=== PATIENT | male | born 1950 | race Hispanic/Latino ===

== ENCOUNTER 2017-12-17 11:47 | Inpatient (IN) | payer MEDICARE ==
[~2017-12-17] VITALS: Ht 167.6 cm; Wt 76.7 kg
--- OUTSIDE RECORDS SUMMARY | 2017-12-17 11:49 | XMS REPORT | Clinical Summary ---
Author Author [facility] Address Unknown Phone Unavailable Care Team Providers Care Collar Turner Operator Name Role Phone PCP Unavailable Allergies Active Allergy Reactions Severity Noted Date Comments Adhesive Hives High 08/10/2012 Plastic tape Current Medications Prescription Sig. Disp. Refills Start End Date Status Date niacin (NIASPAN) 1000 MG Take 1,000 mg by mouth Active CR tablet nightly. predniSONE (DELTASONE) 5 Take 5 mg by mouth daily. Active MG tablet insulin glargine (LANTUS) Inject 45 Units Active 100 unit/mL injection subcutaneously nightly Dose confirmed and verified with patient's daughter.. insulin lispro (HUMALOG) Inject 5 Units Active 100 unit/mL subcutaneously 3 (three) injectionIndications: times daily before meals Diabetes Mellitus HOLD FOR GLUCOSE <200 - Dose confirmed and verified with patient's daughter.. omeprazole (PRILOSEC) 40 Take 40 mg by mouth Active MG capsule daily. levothyroxine (SYNTHROID, Take 1 tablet (25 mcg 90 tablet 1 04/17/20 Active LEVOTHROID) 25 MCG tablet total) by mouth daily. 13 NIFEdipine (PROCARDIA-XL) Take 1 tablet (90 mg 30 tablet 6 05/15/20 Active 90 MG (OSM) 24 hr tablet total) by mouth daily. 13 mycophenolate (MYFORTIC) Take 3 tablets (540 mg 180 tablet 6 09/11/19 Active 180 MG EC tablet total) by mouth 2 (two) 14 times daily. docusate sodium (COLACE) Take 1 capsule (100 mg 10 capsule 0 09/11/19 Active 100 MG capsule total) by mouth 2 (two) 14 times daily. carvedilol (COREG) 25 MG Take 25 mg by mouth 2 Active tablet (two) times daily with breakfast and dinner. cycloSPORINE modified Take 100 mg by mouth Active (NEORAL) 100 MG capsule every evening. sodium bicarbonate 650 MG Take 2 tablets (1,300 mg 120 tablet 0 08/19/19 tablet total) by mouth 2 (two) 17 18 times daily. levoFLOXacin (LEVAQUIN) Take 1 tablet (500 mg 7 tablet 0 07/26/19 500 MG tablet total) by mouth daily for 18 18 7 days. benzonatate (TESSALON) Take 1 capsule (100 mg 21 capsule 0 07/26/19 08/02/19 100 MG capsule total) by mouth every 8 18 18 (eight) hours for 7 days. Active Problems Problem Noted Date Bacterial pneumonia, unspecified 08/16/2016 SIRS (systemic inflammatory response syndrome) ([facility]) 10/29/2015 Fever, unspecified fever cause 08/25/2015 Left lower lobe pneumonia ([facility]) 04/30/2015 Fever 03/25/2014 S/P kidney transplant 12/17/2012 DM (diabetes mellitus) ([facility]) Gastroparesis Retinopathy CAD (coronary artery disease) Hyperlipidemia PVD (peripheral vascular disease) ([facility]) GERD (gastroesophageal reflux disease) Encounters Date Type Specialty Care Team Description 07/26/2017 Emergency Emergency Medicine Griselda Calvillo MD S/P kidney transplant (Primary Dx);Wheezing-associated respiratory infection;Immunosuppressi on ([facility]);Fever, unspecified fever cause;Influenza-like illness;Pneumonitis after 12/16/2016 Family History Medical History Relation Name Comments Diabetes Mother Diabetes Son Relation Name Status Comments Mother Son Social History Tobacco Use Types Packs/Day Years Used Date Former Smoker 0.25 20 Quit: 07/23/1994 Smokeless Tobacco: Never Used Alcohol Use Drinks/Week oz/Week Comments No Sex Assigned at Date Recorded Not on file Last Filed Vital Signs Vital Sign Reading Time Taken Blood Pressure 182/80 07/26/2017 5:32 PM INSURANCE REPRESENTATIVE Pulse 84 07/26/2017 5:32 PM INSURANCE REPRESENTATIVE Temperature 36.6 C (97.9 F) 07/26/2017 4:03 PM INSURANCE REPRESENTATIVE Respiratory Rate 18 07/26/2017 5:32 PM INSURANCE REPRESENTATIVE Oxygen Saturation 99% 07/26/2017 5:32 PM INSURANCE REPRESENTATIVE Inhaled Oxygen - - Concentration Weight 76 kg (167 lb 8.8 oz) 07/26/2017 11:15 AM INSURANCE REPRESENTATIVE Height - - Body Mass Index 27.04 07/26/2017 11:15 AM INSURANCE REPRESENTATIVE Plan of Treatment Health Maintenance Due Date Last Done Comments INFLUENZA VACCINE 04/22/2018 Results * CT chest without contrast (07/26/2017 4:25 PM) Specimen Performing Laboratory GE RIS Narrative FINAL REPORT INDICATION: 67-year-old immunocompromised male with cough and fever. COMPARISON: Chest radiograph July 26, [address] exam August 25, 2015 TECHNIQUE: Chest CT exam WITHOUT intravenous contrast. The exam was performed according to our department dose-optimization protocol, which includes automated exposure control, adjustments of mA and kV according to patient size. Iterative reconstructions are also sometimes employed. FINDINGS: There are tree-in-bud opacities, representing pneumonitis, in both lungs and all lobes most significant in the left upper lobe and in the right lower lobe. No consolidation or cavitary pneumonia is demonstrated. Central airways are clear. No pleural effusion. No mediastinal or hilar adenopathy. Esophagus unremarkable. Heart is at the upper limits of normal in size. Coronary artery calcification and thoracic aortic atherosclerotic plaque noted. No pericardial effusion. No suspicious osseous lesion demonstrated. Ossification of the syndesmophytes suggests ankylosing spondylitis. Partial imaging of the upper abdomen demonstrates cholecystectomy surgical clips and renal atrophy. IMPRESSION: Tree-in-bud opacities in both lungs and all lobes, representing pneumonitis. No consolidation and no cavitary pneumonia. Signed: Laura Monterroso MD Report Verified Date/Time:07/26/2017 17:11:09 Reading Location: [address] Body Reading Room Procedure Note Interface, External Ris In - 07/26/2017 5:13 PM INSURANCE REPRESENTATIVE FINAL REPORT INDICATION: 67-year-old immunocompromised male with cough and fever. COMPARISON: Chest radiograph July 26, [address] exam August 25, 2015 TECHNIQUE: Chest CT exam WITHOUT intravenous contrast. The exam was performed according to our department dose-optimization protocol, which includes automated exposure control, adjustments of mA and kV according to patient size. Iterative reconstructions are also sometimes employed. FINDINGS: There are tree-in-bud opacities, representing pneumonitis, in both lungs and all lobes most significant in the left upper lobe and in the right lower lobe. No consolidation or cavitary pneumonia is demonstrated. Central airways are clear. No pleural effusion. No mediastinal or hilar adenopathy. Esophagus unremarkable. Heart is at the upper limits of normal in size. Coronary artery calcification and thoracic aortic atherosclerotic plaque noted. No pericardial effusion. No suspicious osseous lesion demonstrated. Ossification of the syndesmophytes suggests ankylosing spondylitis. Partial imaging of the upper abdomen demonstrates cholecystectomy surgical clips and renal atrophy. IMPRESSION: Tree-in-bud opacities in both lungs and all lobes, representing pneumonitis. No consolidation and no cavitary pneumonia. Signed: Laura Monterroso MD Report Verified Date/Time: 07/26/2017 17:11:09 Reading Location: [facility] C013Y CT Body Reading Room * XR chest 2 views (07/26/2017 1:36 PM) Specimen Performing Laboratory GE RIS Narrative FINAL REPORT TECHNIQUE: Frontal and lateral chest radiographs dated 07/26/2017. CLINICAL HISTORY: Cough, fever COMPARISON STUDY: Chest radiograph dated 08/18/2016 FINDINGS: Small amount of atelectasis is seen in the left lung base. There are ill-defined, micronodular opacities in the left upper lobe and right lower lobe concerning for an infectious/inflammatory process. No pleural effusion or pneumothorax. Cardiomediastinal silhouette is normal in size. No pulmonary edema. Degenerative changes are seen in the spine. IMPRESSION: Ill-defined, micronodular opacities in the left upper lobe and right lower lobe concerning for an infectious/inflammatory process. CT scan of the chest is recommended. Signed: Briseyda Santos MD Report Verified Date/Time:07/26/2017 14:01:06 Reading Location: [facility] Radiology Reading Room Procedure Note Interface, External Ris In - 07/26/2017 2:03 PM INSURANCE REPRESENTATIVE FINAL REPORT TECHNIQUE: Frontal and lateral chest radiographs dated 07/26/2017. CLINICAL HISTORY: Cough, fever COMPARISON STUDY: Chest radiograph dated 08/18/2016 FINDINGS: Small amount of atelectasis is seen in the left lung base. There are ill-defined, micronodular opacities in the left upper lobe and right lower lobe concerning for an infectious/inflammatory process. No pleural effusion or pneumothorax. Cardiomediastinal silhouette is normal in size. No pulmonary edema. Degenerative changes are seen in the spine. IMPRESSION: Ill-defined, micronodular opacities in the left upper lobe and right lower lobe concerning for an infectious/inflammatory process. CT scan of the chest is recommended. Signed: Briseyda Santos MD Report Verified Date/Time: 07/26/2017 14:01:06 Reading Location: [facility] Radiology Reading Room * Influenza A H1N1 PCR (07/26/2017 12:52 PM) Component Value Ref Range Influenza A RNA Not Detected Not Detected, Inconclusive Novel H1N1 RNA Not Detected Not Detected, Inconclusive Specimen Performing Laboratory Nasal - Nasopharyngeal [facility] [address] These assays were performed by real-time RT-PCR (dye range operator cloth-PCR) utilizing fluorogenic hydrolysis probe technology for the detection of human Influenza A viruses and the differential detection of novel H1N1 Influenza virus in respiratory specimens. The test is composed of (1) an RNA extraction from patient specimen, and (2) dye range operator cloth-PCR amplification and detection with human Influenza A and novel [id number] primers and probes. A well-conserved region of the Influenza A matrix gene is targeted in one set of reactions to identify both seasonal Influenza A and novel H1N1 Influenza virus in the specimen.In addition, a specific region of the hemagglutinin gene is targeted to differentiate the novel H1N1 virus from the seasonal human influenza. An internal control is used to confirm PCR amplification.Genetic variation and other factors can affect the accuracy of nucleic acid testing; therefore, the results should be interpreted in light of clinical data. This test was developed and its performance characteristics determined by the [facility] Pathology Department, Section of Molecular Pathology.It has not been cleared or approved by the U.S. Food and Drug Administration (FDA).Since FDA approval is not required for clinical use of the test, validation was done as required by The Clinical Laboratory Amendments of 1988. These assays were performed by real-time RT-PCR (dye range operator cloth-PCR) utilizing fluorogenic hydrolysis probe technology for the detection of human Influenza A viruses and the differential detection of novel H1N1 Influenza virus in respiratory specimens. The test is composed of (1) an RNA extraction from patient specimen, and (2) dye range operator cloth-PCR amplification and detection with human Influenza A and novel [id number]-vjvtozym primers and probes. A well-conserved region of the Influenza A matrix gene is targeted in one set of reactions to identify both seasonal Influenza A and novel H1N1 Influenza virus in the specimen.In addition, a specific region of the hemagglutinin gene is targeted to differentiate the novel H1N1 virus from the seasonal human influenza. An internal control is used to confirm PCR amplification.Genetic variation and other factors can affect the accuracy of nucleic acid testing; therefore, the results should be interpreted in light of clinical data. This test was developed and its performance characteristics determined by the [facility] Pathology Department, Section of Molecular Pathology.It has not been cleared or approved by the U.S. Food and Drug Administration (FDA).Since FDA approval is not required for clinical use of the test, validation was done as required by The Clinical Laboratory Amendments of 1988. * Rapid Influenza A&B Screen (07/26/2017 12:52 PM) Component Value Ref Range Rapid Influenza A Antigen Negative Negative, Inconclusive Rapid influenza B Antigen Negative Negative, Inconclusive Specimen Performing Laboratory Nasal - Nasopharyngeal [facility] [address] [place] [address] * CBC with platelet count + automated diff (07/26/2017 12:43 PM) Component Value Ref Range WBC 7.6 3.5 - 10.5 K/ L RBC 3.78 (L) 4.63 - 6.08 M/ L Hemoglobin 10.9 (L) 13.7 - 17.5 GM/DL Hematocrit 32.7 (L) 40.1 - 51.0 % MCV 86.5 79.0 - 92.2 fL MCH 28.8 25.7 - 32.2 pg MCHC 33.3 32.3 - 36.5 GM/DL RDW 13.1 11.6 - 14.4 % Platelets 315 150 - 450 K/CU MM MPV 10.2 9.4 - 12.4 fL nRBC 0 0 - 0 /100 WBC % Neutros 76 % % Lymphs 11 % % Monos 9 % % Eos 4 % % Baso 1 % # Neutros 5.79 (H) 1.78 - 5.38 K/ L # Lymphs 0.80 (L) 1.32 - 3.57 K/ L # Monos 0.66 0.30 - 0.82 K/ L # Eos 0.27 0.04 - 0.54 K/ L # Baso 0.06 0.01 - 0.08 K/ L Immature 1 0 - 1 % Granulocytes-Relative Specimen Performing Laboratory Blood - Line, Venous [address] [address] * CBC with platelet count + automated diff (07/26/2017 12:43 PM) Specimen Performing Laboratory Blood Narrative The following orders were created for panel order CBC with platelet count + automated diff. Procedure Abnormality Status --------- - ------ CBC with platelet count ...[[id number]]AbnormalFinal result Please view results for these tests on the individual orders. * Basic metabolic panel (Na, K+, Cl, CO2, Glu, Ca, BUN, Cr) (07/26/2017 12:43 PM ) Component Value Ref Range Sodium 133 (L) 136 - 145 meq/L Potassium 3.6 3.5 - 5.1 meq/L Chloride 105 98 - 107 meq/L CO2 18 (L) 22 - 29 meq/L BUN 18 7 - 21 mg/dL Creatinine 1.50 (H) 0.57 - 1.25 mg/dL Glucose 165 (H) 70 - 105 mg/dL Calcium 10.0 8.4 - 10.2 mg/dL EGFR 47Comment: ESTIMATED GFR IS NOT ACCURATE mL/min/1.73 sq m CREATININE CLEARANCE IN PREDICTING GLOMERULAR FILTRATION RATE. ESTIMATED GFR IS NOT APPLICABLE FOR DIALYSIS PATIENTS. Specimen Performing Laboratory Blood - Line, Venous [address] [address] after 12/16/2016
--- OUTSIDE RECORDS SUMMARY | 2017-12-17 11:49 | XMS REPORT ---
Author Author [facility] Address Unknown Phone Unavailable Care Team Providers Care Fuel Assembler Name Role Phone LOLA BONE Unavailable Unavailable Problems This patient has no known problems. Allergies, Adverse Reactions, Alerts This patient has no known allergies or adverse reactions. Medications This patient has no known medications. Results Test Description Test Time Test Comments Text Results Atomic Results Result Comments INFLUENZA A H1N1 PCR 2017-07-27 14:00:00 INFLUENZA A RNA (BEAKER) (test nyqq=0193) Not Detected Not Detected, Inconclusive NOVEL H1N1 RNA (BEAKER) (test cbly=8842) Not Detected Not Detected, Inconclusive These assays were performed by real-time RT-PCR (marketing representative-PCR) utilizing fluorogenic hydrolysis probe technology for the detection of human Influenza A viruses and the differential detection of novel H1N1 Influenza virus in respiratory specimens. The test is composed of (1) an RNA extraction from patient specimen, and (2) marketing representative-PCR amplification and detection with human Influenza A and novel [id number] primers and probes. A well-conserved region of the Influenza A matrix gene is targeted in one set of reactions to identify both seasonal Influenza A and novel H1N1 Influenza virus in the specimen. In addition, a specific region of the hemagglutinin gene is targeted to differentiate the novel H1N1 virus from the seasonal human influenza. An internal control is used to confirm PCR amplification. Genetic variation and other factors can affect the accuracy of nucleic acid testing; therefore, the results should be interpreted in light of clinical data. This test was developed and its performance characteristics determined by the [facility] Pathology Department, Section of Molecular Pathology. It has not been cleared or approved by the U.S. Food and Drug Administration (FDA). Since FDA approval is not required for clinical use of the test, validation was done as required by The Clinical Laboratory Amendments of 1988.These assays were performed by real-time RT-PCR (marketing representative-PCR) utilizing fluorogenic hydrolysis probe technology for the detection of human Influenza A viruses and the differential detection of novel H1N1 Influenza virus in respiratory specimens. The test is composed of (1) an RNA extraction from patient specimen, and (2) marketing representative-PCR amplification and detection with human Influenza A and novel J9H1-stpbbxcn primers and probes. A well-conserved region of the Influenza A matrix gene is targeted in one set of reactions to identify both seasonal Influenza A and novel H1N1 Influenza virus in the specimen. In addition, a specific region of the hemagglutinin gene is targeted to differentiate the novel H1N1 virus from the seasonal human influenza. An internal control is used to confirm PCR amplification. Genetic variation and other factors can affect the accuracy of nucleic acid testing; therefore, the results should be interpreted in light of clinical data. This test was developed and its performance characteristics determined by the [facility] Pathology Department, Section of Molecular Pathology. It has not been cleared or approved by the U.S. Food and Drug Administration ( FDA). Since FDA approval is not required for clinical use of the test, validation was done as required by The Clinical Laboratory Amendments of 1988.CT , CHEST, WITHOUT [id number] 17:11:00Reason for exam:->COUGHReason for exam:->FEVERWhat is the patient's sedation requirement?->No SedationFINAL REPORT INDICATION: 67-year-old immunocompromised male with cough and fever. COMPARISON:Chest radiograph July 26, 2017Chest CT exam August 25, 2015 TECHNIQUE: Chest CT exam WITHOUT intravenous contrast. The exam was performed according to our department dose-optimization protocol, which includes automated exposure control, adjustments of mA and kV according to patient size. Iterative reconstructions are also sometimes employed. FINDINGS :There are tree-in-bud opacities, representing pneumonitis, in both [...] and no cavitary pneumonia. Signed: Laura Monterroso MDReport Verified Date/Time: 07/26/2017 17:11:09 Reading Location: [facility] B1 C013Y CT Body Reading Room D INFLUENZA A&B [id number] 14:39:00* Test Item Value Reference Range Comments RAPID INFLUENZA A AG (BEAKER) (test iioi=5924) Negative Negative, Inconclusive RAPID INFLUENZA B AG (BEAKER) (test ejas=3319) Negative Negative, Inconclusive RAD, CHEST, 2 [id number] 14:01:00Reason for exam:->COUGHReason for exam:-> FEVERFINAL REPORT TECHNIQUE: Frontal and lateral chest radiographs [...] the chest is recommended. Signed: Briseyda Santos MDReport Verified Date/Time : 07/26/2017 14:01:06 Reading Location: [facility] Radiology Reading Room C METABOLIC [id number] 13:46:00* Test Item Value Reference Range Comments SODIUM (BEAKER) (test jssa=651) 133 meq/L 136-145 POTASSIUM (BEAKER) (test cxpp=632) 3.6 meq/L 3.5-5.1 CHLORIDE (BEAKER) (test poxp=842) 105 meq/L 98-107 CO2 (BEAKER) (test zjku=029) 18 meq/L 22-29 BLOOD UREA NITROGEN (BEAKER) (test nqwb=700) 18 mg/dL 7-21 CREATININE (BEAKER) (test xvzg=814) 1.50 mg/dL 0.57-1.25 GLUCOSE RANDOM (BEAKER) (test pivk=446) 165 mg/dL 70-105 CALCIUM (BEAKER) (test iwhy=924) 10.0 mg/dL 8.4-10.2 EGFR (BEAKER) (test sufp=9206) 47 mL/min/1.73 sq m ESTIMATED GFR IS NOT ACCURATE CREATININE CLEARANCE IN PREDICTING GLOMERULAR FILTRATION RATE. ESTIMATED GFR IS NOT APPLICABLE FOR DIALYSIS PATIENTS. CBC W/PLT COUNT & AUTO [id number] 13:25:00* Test Item Value Reference Range Comments WHITE BLOOD CELL COUNT (BEAKER) (test rjgn=206) 7.6 K/ L 3.5-10.5 RED BLOOD CELL COUNT (BEAKER) (test uddu=055) 3.78 M/ L 4.63-6.08 HEMOGLOBIN (BEAKER) (test rqlt=456) 10.9 GM/DL 13.7-17.5 HEMATOCRIT (BEAKER) (test hmgp=155) 32.7 % 40.1-51.0 MEAN CORPUSCULAR VOLUME (BEAKER) (test eocv=225) 86.5 fL 79.0-92.2 MEAN CORPUSCULAR HEMOGLOBIN (BEAKER) (test fbrj=888) 28.8 pg 25.7-32.2 MEAN CORPUSCULAR HEMOGLOBIN CONC (BEAKER) (test wikr=730) 33.3 GM/DL 32.3- 36.5 RED CELL DISTRIBUTION WIDTH (BEAKER) (test btbe=614) 13.1 % 11.6-14.4 PLATELET COUNT (BEAKER) (test zhyx=394) 315 K/CU MM 150-450 MEAN PLATELET VOLUME (BEAKER) (test vhhy=263) 10.2 fL 9.4-12.4 NUCLEATED RED BLOOD CELLS (BEAKER) (test inrr=708) 0 /100 WBC 0-0 NEUTROPHILS RELATIVE PERCENT (BEAKER) (test ojux=549) 76 % LYMPHOCYTES RELATIVE PERCENT (BEAKER) (test spei=114) 11 % MONOCYTES RELATIVE PERCENT (BEAKER) (test smts=763) 9 % EOSINOPHILS RELATIVE PERCENT (BEAKER) (test umio=297) 4 % BASOPHILS RELATIVE PERCENT (BEAKER) (test jwwe=233) 1 % NEUTROPHILS ABSOLUTE COUNT (BEAKER) (test hmis=847) 5.79 K/ L 1.78-5.38 LYMPHOCYTES ABSOLUTE COUNT (BEAKER) (test ugzl=974) 0.80 K/ L 1.32-3.57 MONOCYTES ABSOLUTE COUNT (BEAKER) (test kjqp=297) 0.66 K/ L 0.30-0.82 EOSINOPHILS ABSOLUTE COUNT (BEAKER) (test qnym=742) 0.27 K/ L 0.04-0.54 BASOPHILS ABSOLUTE COUNT (BEAKER) (test fdnr=990) 0.06 K/ L 0.01-0.08 IMMATURE GRANULOCYTES-RELATIVE PERCENT (BEAKER) (test hlki=3159) 1 % 0-1
[2017-12-17] MEDS ORDERED: SODIUM CHLORIDE 0.9% 1000ML 1,000 ML IV STA (13:14)
[2017-12-17 13:26] LABS: BASOPHILS # (AUTO) 0.1 (0.0-0.1); BASOPHILS % 0.7 % (0.0-1.0); EOSINOPHILS # (AUTO) 0.1 (0.0-0.4); EOSINOPHILS % 2.1 % (0.0-6.0); HEMATOCRIT 30.1 % (38.2-49.6); HEMOGLOBIN 10.3 g/dL (14.0-18.0); LYMPHOCYTES # (AUTO) 0.7 (1.0-3.2); LYMPHOCYTES % 10.4 % (18.0-39.1); MEAN CORPUSCULAR HEMOGLOBIN 29.6 pg (28-32); MEAN CORPUSCULAR HGB CONC 34.2 g/dL (31-35); MEAN CORPUSCULAR VOLUME 86.5 fL (81-99); MONOCYTES # (AUTO) 0.6 (0.2-0.8); MONOCYTES % 9.1 % (4.4-11.3); NEUTROPHILS # (AUTO) 5.2 (2.1-6.9); NEUTROPHILS % 76.7 % (38.7-80.0); PLATELET COUNT 314 x10e3/uL (140-360); RED BLOOD COUNT 3.48 x10e6/uL (4.3-5.7); RED CELL DISTRIBUTION WIDTH 13.4 % (11.7-14.4)
[2017-12-17 13:40] LABS: ALBUMIN 3.4 g/dL (3.5-5.0); ALBUMIN/GLOBULIN RATIO 0.8 (0.8-2.0); ANION GAP 13.9 mmol/L (8-16); CALCIUM 9.7 mg/dL (8.4-10.2); CREATININE, SERUM 1.54 mg/dL (0.72-1.25); POTASSIUM 3.9 mmol/L (3.5-5.1)
[2017-12-17 13:46] LABS: CREATINE KINASE MB 1.7 ng/mL (0-5.0)
[2017-12-17] MEDS ORDERED: MORPHINE SULFATE 2 MG/ML SYR IV PRN (16:15)
[2017-12-17] MEDS ORDERED: DEXTROSE 50% SYRINGE 50 ML IV PRN ×2 (16:15→17:15)
[2017-12-17] MEDS ORDERED: ONDANSETRON HCL 4 MG ORAL DISINTEGRATING TAB PO PRN (16:15)
[2017-12-17] MEDS ORDERED: PIPERACILLIN/TAZO 2.25 GM 50 ML IV SCH (16:20)
[2017-12-17] MEDS: INSULIN REGULAR, HUMAN 100 UNIT/1 ML 3ML VIAL SQ SCH ×2 (16:30→22:07)
--- NOTE | 2017-12-17 16:33 | Diagnostic Imaging Report ---
FOOT RIGHT COMPLETE HISTORY: Ulcer on right toe. COMPARISON: Right foot MRI 04/06/2016 FINDINGS: Bones: No acute displaced fracture. Well-corticated erosion of the medial base of the first proximal phalanx may be related to gout. Osseous alignment is within normal limits. Joints: The joint spaces are well-maintained. Soft tissues: Diffuse vascular calcifications. Soft tissue swelling of the forefoot. No subcutaneous emphysema. IMPRESSION: No radiographic evidence of osteomyelitis. Recommend follow-up radiograph in 10 weeks in the setting of continued poor wound healing. A MRI may be obtained for more sensitive evaluation. Signed by: DR. Maxwell Shah MD on 12/17/2017 4:30 PM
--- OUTSIDE RECORDS SUMMARY | 2017-12-17 16:57 | XMS REPORT | Clinical Summary ---
Author Author JUSTINE [facility] Address Unknown Phone Unavailable Care Team Providers Care Director Of Media Name Role Phone PCP Unavailable Allergies Active [...] unspecified 08/16/2016 SIRS (systemic inflammatory response syndrome) ([facility]) 10/29/2015 Fever, unspecified fever cause 08/25/2015 Left lower lobe pneumonia ([facility]) 04/30/2015 Fever 03/25/2014 S/P kidney transplant 12/17/2012 DM (diabetes mellitus) ([facility]) Gastroparesis Retinopathy CAD (coronary artery disease) Hyperlipidemia PVD (peripheral vascular disease) ([facility]) GERD (gastroesophageal reflux disease) Encounters Date Type Specialty Care Team Description 07/26/2017 Emergency Emergency Medicine Griselda Calvillo MD S/P kidney transplant (Primary Dx);Wheezing-associated respiratory infection;Immunosuppressi on ([facility]);Fever, unspecified fever cause;Influenza-like illness;Pneumonitis after 12/16/2016 Family [...] Taken Blood Pressure 182/80 07/26/2017 5:32 PM FILBERT GROWER Pulse 84 07/26/2017 5:32 PM FILBERT GROWER Temperature 36.6 C (97.9 F) 07/26/2017 4:03 PM FILBERT GROWER Respiratory Rate 18 07/26/2017 5:32 PM FILBERT GROWER Oxygen Saturation 99% 07/26/2017 5:32 PM FILBERT GROWER Inhaled Oxygen - - Concentration Weight 76 kg (167 lb 8.8 oz) 07/26/2017 11:15 AM FILBERT GROWER Height - - Body Mass Index 27.04 07/26/2017 11:15 AM FILBERT GROWER Plan of Treatment Health Maintenance Due Date [...] MD Report Verified Date/Time:07/26/2017 17:11:09 Reading Location: [address] Body Reading Room Procedure Note Interface, External Ris In - 07/26/2017 5:13 PM FILBERT GROWER FINAL REPORT INDICATION: 67-year-old immunocompromised male with [...] Report Verified Date/Time: 07/26/2017 17:11:09 Reading Location: [facility] C013Y CT Body Reading Room * [...] MD Report Verified Date/Time:07/26/2017 14:01:06 Reading Location: [facility] Radiology Reading Room Procedure Note Interface, External Ris In - 07/26/2017 2:03 PM FILBERT GROWER FINAL REPORT TECHNIQUE: Frontal and lateral chest [...] Report Verified Date/Time: 07/26/2017 14:01:06 Reading Location: [facility] Radiology Reading Room * Influenza A H1N1 PCR (07/26/2017 12:52 PM) Component Value Ref Range Influenza A RNA Not Detected Not Detected, Inconclusive Novel H1N1 RNA Not Detected Not Detected, Inconclusive Specimen Performing Laboratory Nasal - Nasopharyngeal [facility] [address] These assays were performed by real-time RT-PCR (logistics manager-PCR) utilizing fluorogenic hydrolysis probe technology for the detection of human Influenza A viruses and the differential detection of novel H1N1 Influenza virus in respiratory specimens. The test is composed of (1) an RNA extraction from patient specimen, and (2) logistics manager-PCR amplification and detection with human Influenza A and novel [id number] primers and probes. A well-conserved region of [...] performance characteristics determined by the [facility] Pathology Department, Section of Molecular Pathology.It has not been cleared or approved by the U.S. Food and Drug Administration (FDA).Since FDA approval is not required for clinical use of the test, validation was done as required by The Clinical Laboratory Amendments of 1988. These assays were performed by real-time RT-PCR (logistics manager-PCR) utilizing fluorogenic hydrolysis probe technology for the detection of human Influenza A viruses and the differential detection of novel H1N1 Influenza virus in respiratory specimens. The test is composed of (1) an RNA extraction from patient specimen, and (2) logistics manager-PCR amplification and detection with human Influenza A and novel [id number] primers and probes. A well-conserved region of [...] performance characteristics determined by the [facility] Pathology Department, Section of Molecular Pathology.It has [...] Specimen Performing Laboratory Nasal - Nasopharyngeal [facility] [address] [place] [address] * CBC with platelet count + automated [...] Specimen Performing Laboratory Blood - Line, Venous [address] [address] * CBC with platelet count + automated diff (07/26/2017 12:43 PM) Specimen Performing Laboratory Blood Narrative The following orders were created for panel order CBC with platelet count + automated diff. Procedure Abnormality Status --------- - ------ CBC with platelet count ...[[id number]]AbnormalFinal result Please view results for these tests [...] Specimen Performing Laboratory Blood - Line, Venous [address] [address] after 12/16/2016
[2017-12-17 17:44] LABS: % IRON SATURATION 20 % (15-50); IRON 36 ug/dL (65-175); TOTAL IRON BINDING CAPACITY 183 ug/dL (261-478); TRANSFERRIN 131 mg/dL (174-364)
[2017-12-17] MEDS: VANCOMYCIN 1GM/NS 250 ML 250 ML IV SCH (19:29)
[2017-12-17] MEDS ORDERED: COLACE100 MG PO (21:18)
[2017-12-17] MEDS ORDERED: LEVOTHYROXINE50 MCG PO (21:18)
[2017-12-17] MEDS ORDERED: NEORAL25 MG (21:18)
[2017-12-17] MEDS ORDERED: COREG12.5 MG (21:18)
[2017-12-17] MEDS ORDERED: MYFORTIC180 MG (21:18)
[2017-12-17] MEDS ORDERED: NIFEDIPINE ER30 M1 (21:18)
[2017-12-17] MEDS ORDERED: OMEPRAZOLE40 MG (21:18)
[2017-12-17] MEDS ORDERED: NIACIN100 MG PO (21:18)
[2017-12-17] MEDS ORDERED: PREDNISONE5 MG (21:18)
[2017-12-17 22:25] VITALS: BP 175/77
[2017-12-18] VITALS (7 sets, daily range): BP systolic 140–175; BP diastolic 69–81
[2017-12-18] MEDS: PIPERACILLIN/TAZO 2.25 GM 50 ML IV SCH ×6 (00:45→17:33)
[2017-12-18 06:23] LABS: BASOPHILS # (AUTO) 0.1 (0.0-0.1); BASOPHILS % 0.9 % (0.0-1.0); EOSINOPHILS # (AUTO) 0.1 (0.0-0.4); EOSINOPHILS % 1.9 % (0.0-6.0); HEMATOCRIT 30.5 % (38.2-49.6); HEMOGLOBIN 9.9 g/dL (14.0-18.0); LYMPHOCYTES # (AUTO) 0.8 (1.0-3.2); LYMPHOCYTES % 11.1 % (18.0-39.1); MEAN CORPUSCULAR HEMOGLOBIN 28.9 pg (28-32); MEAN CORPUSCULAR HGB CONC 32.5 g/dL (31-35); MEAN CORPUSCULAR VOLUME 88.9 fL (81-99); MONOCYTES # (AUTO) 0.6 (0.2-0.8); MONOCYTES % 8.6 % (4.4-11.3); NEUTROPHILS # (AUTO) 5.2 (2.1-6.9); NEUTROPHILS % 76.6 % (38.7-80.0); PLATELET COUNT 303 x10e3/uL (140-360); RED BLOOD COUNT 3.43 x10e6/uL (4.3-5.7); RED CELL DISTRIBUTION WIDTH 13.5 % (11.7-14.4)
[2017-12-18 06:50] LABS: ALBUMIN 2.9 g/dL (3.5-5.0); ALBUMIN/GLOBULIN RATIO 0.8 (0.8-2.0); ANION GAP 14.2 mmol/L (8-16); CALCIUM 9.2 mg/dL (8.4-10.2); CREATININE, SERUM 1.4 mg/dL (0.72-1.25); POTASSIUM 4.2 mmol/L (3.5-5.1)
[2017-12-18] MEDS: INSULIN REGULAR, HUMAN 100 UNIT/1 ML 3ML VIAL SQ SCH ×4 (07:30→21:17)
[2017-12-18] MEDS: PREDNISONE 5 MG TAB PO SCH (09:00)
[2017-12-18] MEDS: DOCUSATE SODIUM 100 MG CAP PO SCH ×2 (09:00→17:00)
[2017-12-18] MEDS: NIFEDIPINE CR 30 MG TAB PO SCH (09:00)
[2017-12-18] MEDS: CARVEDILOL 12.5 MG TAB PO SCH (09:00)
[2017-12-18] MEDS: NIACIN 100 MG TAB PO SCH (09:00)
[2017-12-18] MEDS ORDERED: CYCLOSPORINE 25 MG CAP PO SCH (09:00)
--- NOTE | 2017-12-18 09:20 | Cardiology Report ---
DATE OF STUDY: December 17, 2017 DOPPLER SCAN OF LOWER EXTREMITY ARTERIES The left leg arteries showed velocity of 2.1 meters per second with biphasic waveform in the distal left femoral artery, monophasic waveform in the mid left posterior tibial artery and absence of flow in the distal left anterior tibial artery consistent with small vessel disease as well as moderately severe stenosis involving the distal left femoral artery. On the right leg, the velocity was 2 meters per second involving the proximal right posterior tibial artery with distal waveforms becoming monophasic including the right anterior tibial artery suggestive of high-grade stenosis in the proximal right posterior tibial artery and significant disease involving the right anterior tibial artery. CONCLUSIONS 1. Probable high-grade stenosis involving the distal left femoral artery with velocity of 2.1 meters per second. 2. Probable high-grade stenosis involving the proximal right posterior tibial artery with velocity of 2.0 meters per second. 3. Small vessel disease involving the right anterior tibial artery as well as the left anterior tibial artery with the left anterior tibial artery distally showing no flow. 4. Small vessel disease also involving the mid left posterior tibial artery with monophasic waveform. Job#: [id number]
--- NOTE | 2017-12-18 09:52 | History and Physical ---
CLINICAL HISTORY: This is a 67-year-old man, patient of Dr. Cameron Giraldo, seen in the emergency room at [facility] because of cellulitis in the setting of renal transplant following immunosuppressants. This patient apparently has had necrotic ulcer for 5. He did not go see Dr. Giraldo, but decided to come to the emergency room on . He denies any fever, chills or any significant pain. He does have gangrenous toe, which has already turned black. There is some surrounding cellulitis at the base, although the area is not very tender. He was seen by the emergency room physician who elected to hospitalize him. PAST MEDICAL HISTORY: Remarkable for diabetes, hypertension. He denies hyperlipidemia. PAST SURGICAL HISTORY: Included cataract surgery, tonsillectomy, cholecystectomy and prostate surgery. MEDICATIONS: Unknown. FAMILY HISTORY: Brother, sister and parents have diabetes. Father had throat cancer. PERSONAL/SOCIAL HISTORY: Has not smoked or drank for 25 years. 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 REVIEW OF SYSTEMS: Noncontributory. PHYSICAL EXAMINATION: GENERAL: He is alert, coherent. He appears to be comfortable. CARDIAC: Jugular veins were not distended. S1 and S2 were regular. There is no appreciable murmur. LUNGS: Clear. ABDOMEN: Soft. Bowel sounds are present. EXTREMITIES: Showed no cyanosis clubbing or edema. He has a gangrenous right third toe which is turning black. LABORATORY DATA: White count 6800, hemoglobin 10.3, platelet count 314,000. BUN is 16, creatinine 1.5. Sodium 135, bicarb 20. Albumin 3.4. The x-ray of the foot showed no evidence of osteomyelitis. IMPRESSION: 1. Gangrenous right third toe of 5 days' duration, turning black. 2. Possible surrounding cellulitis. 3. Immunosuppression from kidney transplant. 4. Status post kidney transplant. 5. Diabetes. 6. Hypertension. RECOMMENDATIONS: Hospitalization for antibiotics. Check circulation in the right leg. He may require future toe amputation. Job#: [id number] GH cc:CAMERON GIRALDO MD cc:JUAN LUIS AYON MD cc:ANDRES COHEN MD
[2017-12-18] MEDS: SODIUM BICARBONATE 650 MG TAB PO SCH ×3 (10:00→17:32)
--- NOTE | 2017-12-18 13:24 | Consultation ---
DATE OF CONSULTATION: December 18, 2017 INFECTIOUS DISEASE CONSULT ATTENDING PHYSICIAN: Don Coyle MD REASON FOR CONSULTATION: Cellulitis. Thank you, Dr. Coyle, for asking me to see this patient. HISTORY: The patient is a 67-year-old man referred for cellulitis. He presented to the emergency department yesterday with black discoloration of the right 3rd toe associated with redness and swelling of the right forefoot. The patient developed a small ulcer of the right 3rd toe several days earlier and managed it himself. He denies fever and chills. In the emergency department, he had right foot x-ray which showed soft-tissue swelling of the forefoot and diffuse vascular calcification, but no radiographic evidence of osteomyelitis. Arterial Doppler ultrasound of the lower extremities showed significant peripheral arterial disease. PAST MEDICAL HISTORY 1. Diabetes mellitus, type 2. 2. Hypertension. 3. Hypothyroidism. 4. End-stage renal disease. PAST SURGICAL HISTORY 1. Cataract surgery. 2. Tonsillectomy. 3. Cholecystectomy. 4. Transurethral resection of the prostate. 5. Kidney transplant. ALLERGIES: NO KNOWN DRUG ALLERGIES. MEDICATIONS: The current antibiotics are Zosyn 3.325 g IV piggyback q.6 h. and vancomycin 1 g IV piggyback q.24 h. The immunosuppressants consist of cyclosporin 75 mg p.o. daily, mycophenolate 540 mg p.o. b.i.d. and prednisone 5 mg p.o. daily. IMMUNIZATIONS: The patient received pneumococcal vaccination and tetanus-diphtheria vaccination in the past. FAMILY HISTORY: The mother had diabetes mellitus. The father had throat cancer. Siblings also with diabetes mellitus. SOCIAL HISTORY: He quit smoking cigarettes and drinking alcohol 25 years ago. REVIEW OF SYSTEMS: As per history of present illness. PHYSICAL EXAMINATION GENERAL: No acute distress. VITAL SIGNS: T-max 98.5, pulse 74, respiratory rate 20, blood pressure 146/74. Weight is 169 pounds. HEENT: Normocephalic. There is no icterus or injection of conjunctivae. There is no ear or nasal discharge. Moist oral mucosa. No pharyngeal erythema or exudate. NECK: Supple. No lymphadenopathy or meningismus. LUNGS: Clear to auscultation bilaterally. HEART: Normal S1 and S2. ABDOMEN: Soft and nontender. EXTREMITIES: There is gangrene of the distal and middle phalanx of the right 3rd toe. There is no drainage. The dorsalis pedis and posterior tibial pulses are difficult to palpate in both feet. There is no edema, clubbing or cyanosis of the rest of the extremities. SKIN: As per extremities. There is slight erythema of the dorsum of the right forefoot. HSE SPECIALIST: Awake, alert and oriented to person, place and time. There is decreased sensation on monofilament examination of the feet bilaterally. LABORATORY AND DIAGNOSTICS: WBC 6760, hemoglobin 9.9, platelets 330,000, neutrophils 76.6, lymphocytes 11.1, monocytes 8.6, eosinophils 1.9, basophils 0.9. BUN 16, creatinine 1.4, blood glucose 209. Blood culture is pending. IMPRESSION 1. Cellulitis of the right foot present on admission. 2. Gangrene of the right 3rd toe present on admission. 3. Immunosuppression. 4. Peripheral arterial disease. 5. Diabetes mellitus, type 2, with peripheral neuropathy and peripheral arterial disease. PLAN 1. Glycemic control. 2. Discussed with pharmacy department about the patient's proper immunosuppressant doses. 3. Monitor renal function and vancomycin trough closely. 4. Vascular consult if not yet done. Job#: [id number]
[2017-12-18] MEDS: VANCOMYCIN 1GM/NS 250 ML 250 ML IV SCH (17:00)
[2017-12-18] MEDS: MYCOPHENOLATE SODIUM 180 MG PO SCH (21:00)
[2017-12-19 00:42] VITALS: BP 157/69
[2017-12-19 04:00] VITALS: BP 184/79
[2017-12-19] MEDS: PIPERACILLIN/TAZO 2.25 GM 50 ML IV SCH ×3 (05:19→17:20)
[2017-12-19] MEDS: LEVOTHYROXINE SODIUM 25 MCG TABLET PO SCH ×2 (05:21→05:22)
[2017-12-19 06:44] LABS: CALCIUM 9.5 mg/dL (8.4-10.2); CREATININE, SERUM 1.42 mg/dL (0.72-1.25)
--- NOTE | 2017-12-19 07:59 | Consultation ---
DATE OF CONSULTATION: December 19, 2017 PODIATRY CONSULT REASON FOR CONSULTATION: This is a patient that is known to my practice who developed an ulcer on the 3rd digit. He developed it about a week ago. He said it started hurting. He began antibiotics. He did not have any results so he came into the hospital. PAST MEDICAL HISTORY: Diabetes mellitus, history of past renal transplant, immunosuppression, PVD, neuropathy, hypertension, hyperlipidemia. PAST SURGICAL HISTORY: Tonsillectomy, cholecystectomy, prostate surgery. He had a renal transplant. MEDICATIONS: Please refer to MAR. Of interest to this consult are piperacillin/tazobactam and vancomycin. REVIEW OF SYSTEMS: Noncontributory except for ulcer to the right 3rd digit with necrotic distal end. LOWER EXTREMITY PHYSICAL EXAMINATION EXTREMITIES: Pedal pulses are diminished. Capillary refill time is delayed. There is no pedal hair growth. The skin is thin. of the foot. Protective threshold absent. He does have a full-thickness ulcer to the distal aspect of the 3rd digit on the right foot. It is necrotic at the end. There is localized erythema and edema. It seems to be localizing more. The edema is beginning to decrease. VASCULAR: High-grade stenosis involving the distal limb of the left femoral artery, probably high-grade stenosis involving the right posterior artery. Small vessel disease. The right tibial anterior artery with mild vessel disease in the midleft posterior tibial artery. X-ray is negative for faviola osteomyelitis. Blood culture is negative after 24 hours. ASSESSMENT 1. Ulcer, grade 4, right 3rd. 2. Diabetes with neuropathy and peripheral vascular disease. 3. Possible osteomyelitis. 4. Immunosuppression secondary to renal transplant. PLAN: At this point, I agree with the IV antibiotics. The wound is beginning to respond to treatment. I did discuss with him he is probably going to need a debridement and amputation of that digit. At this point, he would like to keep as much of the digit as he can. Depending on how the wound continues to respond to the IV antibiotics, a dorsal flap might be performed for partial amputation if the wound continues to respond. Also, will wait on possible vascular intervention secondary to his PVD. I will continue to follow. Thank you for letting me participate in the care of this patient. Job#: [id number] RI
[2017-12-19 08:00] VITALS: BP 181/83
[2017-12-19] MEDS: INSULIN REGULAR, HUMAN 100 UNIT/1 ML 3ML VIAL SQ SCH ×3 (08:00→16:21)
[2017-12-19] MEDS: CARVEDILOL 12.5 MG TAB PO SCH (09:06)
[2017-12-19] MEDS: DOCUSATE SODIUM 100 MG CAP PO SCH ×2 (09:06→16:22)
[2017-12-19] MEDS: MYCOPHENOLATE SODIUM 180 MG PO SCH (09:07)
[2017-12-19] MEDS: NIACIN 100 MG TAB PO SCH (09:07)
[2017-12-19] MEDS: PREDNISONE 5 MG TAB PO SCH (09:07)
[2017-12-19] MEDS: NIFEDIPINE CR 30 MG TAB PO SCH (09:07)
[2017-12-19 12:00] VITALS: BP 210/82
[2017-12-19] MEDS ORDERED: CLONIDINE HCL 0.1 MG TAB PO ONE ×2 (12:30→14:15)
[2017-12-19] MEDS ORDERED: NIFEDIPINE CR 30 MG TAB PO ONE (12:30)
[2017-12-19] MEDS ORDERED: METRONIDAZOLE500 MG PO (13:21)
[2017-12-19] MEDS ORDERED: DOXYCYCLINE HY100 MG PO (13:21)
[2017-12-19 13:53] VITALS: BP 190/86
[2017-12-19] MEDS ORDERED: NITROGLYCERIN 0.4 MG SUBL SL PRN (14:15)
[2017-12-19 16:00] VITALS: BP 140/66
[2017-12-19] MEDS: VANCOMYCIN 1GM/NS 250 ML 250 ML IV SCH (16:21)
[2017-12-19] MEDS ORDERED: CYCLOSPORINE 25 MG CAP PO SCH (20:00)
[2017-12-20] MEDS ORDERED: NIFEDIPINE CR 30 MG TAB PO SCH (09:00)
--- NOTE | 2017-12-20 09:51 | Discharge Summary ---
CLINICAL HISTORY: This is a 67-year-old man, patient of Dr. Stone Giraldo, who was admitted via the emergency room because of necrotic right 3rd toe. Please refer to my previous dictation concerning details of current illness, past medical history, personal and social history, family history, review of systems, physical examination, and initial laboratory studies. HOSPITAL COURSE: The patient has a slight degree of surrounding cellulitis. It is not clear whether he had any abscess. His toe was not particularly tender. There was concern about cellulitis. Doppler study showing small vessel peripheral vascular disease not requiring any intervention. The patient was seen in consultation by Dr. Winifred Crook, cook house laborer, as well as infectious disease web consultant, Dr. Sourav Benavidez, Dr. Juan Gomez. The general surgeon was also consulted. It was their opinion that the patient can be treated medically with oral antibiotics. Can be discharged on an outpatient basis. Not requiring any intervention at this point. The patient accordingly was discharged with doxycycline 100 mg p.o. daily and Flagyl 500 mg p.o. t.i.d. Other home medications included: 1. Coreg 12.5 mg daily. 2. Neoral. 3. Colace. 4. Levothyroxine 25 mcg daily. 5. Myfortic 540 mg b.i.d. 6. Niacin. 7. Nifedipine 90 mg daily. 8. Omeprazole. 9. Prednisone 5 mg p.o. daily. During this hospitalization, the patient's blood pressure was quite elevated. We had to give him increasing dose of Procardia, as well as clonidine and sublingual nitroglycerin. At the time of discharge, his blood pressure was 140/66. He was instructed to see me for further followup concerning his blood pressure. He otherwise needs to see Dr. Stone Giraldo, Dr. Winifred Crook. He was given activity and medication followup instructions. SAMIRA JEROME MD Job#: [id number] RI cc:MD JUAN ALMANZAR MD MAURICE E. AKUCHIE, MD EDNA REYES-GUERRERO, DPM
== END 2017-12-19 17:40 | disposition home or self-care (01) | DRG 299 ==
LOC: ER 11:47 → ERHOLD 16:54 → MED/SURG2 22:14
PROVIDERS: ADMIT Internal Medicine Cardiovascular Disease; ATTEND Internal Medicine Cardiovascular Disease
DX: E11.52 Type 2 diabetes mellitus with diabetic peripheral angiopathy with gangrene (principal); N18.6 End stage renal disease; I96 Gangrene, not elsewhere classified; D84.9 Immunodeficiency, unspecified; I12.0 Hypertensive chronic kidney disease with stage 5 chronic kidney disease or end stage renal disease; E87.2 Acidosis; Z94.0 Kidney transplant status; L03.031 Cellulitis of right toe; E11.621 Type 2 diabetes mellitus with foot ulcer; L97.514 Non-pressure chronic ulcer of other part of right foot with necrosis of bone; E11.22 Type 2 diabetes mellitus with diabetic chronic kidney disease; Z99.2 Dependence on renal dialysis; Z79.4 Long term (current) use of insulin; Z87.891 Personal history of nicotine dependence; I87.2 Venous insufficiency (chronic) (peripheral); I70.202 Unspecified atherosclerosis of native arteries of extremities, left leg
CPT/HCPCS: 36415; 80048; 80053; 80202; 82948; 85025; 97139; 99284; J2543; J3370; J7030; J7512; J7515

== ENCOUNTER → 2018-01-04 | Outpatient (CLI) | payer MEDICARE ==
[~2018-01-04] MED LIST: COLACE100 MG PO; COREG12.5 MG; DOXYCYCLINE HY100 MG PO; LEVOTHYROXINE50 MCG PO; METRONIDAZOLE500 MG PO; MYFORTIC180 MG; NEORAL25 MG; NIACIN100 MG PO; NIFEDIPINE ER30 M1; OMEPRAZOLE40 MG; PREDNISONE5 MG
[2018-01-04 08:25] LABS: CREATININE, SERUM 1.41 mg/dL (0.72-1.25)
--- NOTE | 2018-01-04 10:17 | Diagnostic Imaging Report ---
PROCEDURE: Frontal and lateral views of the chest. COMPARISON: None. INDICATIONS: STATUS POST PICC LINE PLACEMENT FINDINGS: Lines/tubes: A right PICC has been placed with its tip localized to the cavoatrial junction. Lungs: Patchy ill-defined left upper and lower lobe airspace opacities. Pleura: There is no pleural effusion or pneumothorax. Heart and mediastinum: The heart and the mediastinum are normal. Bones: Flowing osteophytosis of the thoracic spine. IMPRESSION: 1. Patchy ill-defined left upper and lower lobe airspace opacities. 2. Right PICC line as described above. Octavio Duque D.O. Dictated by: Octavio Duque D.O. on 01/04/2018 at 10:21 Electronically approved by: Octavio Duque D.O. on 01/04/2018 at 10:21
== END | disposition home or self-care (01) ==
LOC: DX 07:34
PROVIDERS: ATTEND Internal Medicine Infectious Disease
DX: M86.9 Osteomyelitis, unspecified (principal)
CPT/HCPCS: 36415; 36569; 71046; 82565; 84520

== ENCOUNTER 2018-01-18 10:02 | Outpatient (RCR) | payer MEDICARE | END 2018-01-19 | LOC: WCC 10:02 | PROVIDERS: ATTEND Plastic Surgery | DX: E11.65 Type 2 diabetes mellitus with hyperglycemia (principal); E11.40 Type 2 diabetes mellitus with diabetic neuropathy, unspecified; E11.52 Type 2 diabetes mellitus with diabetic peripheral angiopathy with gangrene; E11.621 Type 2 diabetes mellitus with foot ulcer; M86.171 Other acute osteomyelitis, right ankle and foot; I96 Gangrene, not elsewhere classified; I10 Essential (primary) hypertension; N18.6 End stage renal disease; E03.8 Other specified hypothyroidism; E78.00 Pure hypercholesterolemia, unspecified; Z01.810 Encounter for preprocedural cardiovascular examination; Z01.811 Encounter for preprocedural respiratory examination; Z94.0 Kidney transplant status | CPT/HCPCS: 36415 ×9; 82948 ×9; 83036; 87071; 87075; 87186; 87205; 88305; 88311; 93923; 97597; 99213 ×4; G0277 ×7; 88302 ==

== ENCOUNTER → 2018-02-19 | Outpatient (RCR) | payer MEDICARE | LOC: WCC 01-21 09:06 | PROVIDERS: ATTEND Plastic Surgery | DX: E11.621 Type 2 diabetes mellitus with foot ulcer (principal); E11.52 Type 2 diabetes mellitus with diabetic peripheral angiopathy with gangrene; E11.65 Type 2 diabetes mellitus with hyperglycemia; E11.40 Type 2 diabetes mellitus with diabetic neuropathy, unspecified; M86.9 Osteomyelitis, unspecified; L97.513 Non-pressure chronic ulcer of other part of right foot with necrosis of muscle; Z94.0 Kidney transplant status; M86.171 Other acute osteomyelitis, right ankle and foot; N18.6 End stage renal disease; I10 Essential (primary) hypertension; E78.00 Pure hypercholesterolemia, unspecified; E03.8 Other specified hypothyroidism; Z01.810 Encounter for preprocedural cardiovascular examination; Z01.811 Encounter for preprocedural respiratory examination | CPT/HCPCS: 11042; 15275 ×3; 36415 ×16; 82948 ×17; 99212 ×3; G0277 ×20; Q4131 ×3 ==

== ENCOUNTER 2018-03-11 09:22 | Outpatient (RCR) | payer MEDICARE | END 2018-03-22 | LOC: WCC 09:22 | PROVIDERS: ATTEND Plastic Surgery | DX: E11.621 Type 2 diabetes mellitus with foot ulcer (principal); E11.40 Type 2 diabetes mellitus with diabetic neuropathy, unspecified; E11.65 Type 2 diabetes mellitus with hyperglycemia; E11.52 Type 2 diabetes mellitus with diabetic peripheral angiopathy with gangrene; M86.171 Other acute osteomyelitis, right ankle and foot; M86.9 Osteomyelitis, unspecified; L97.513 Non-pressure chronic ulcer of other part of right foot with necrosis of muscle; N18.6 End stage renal disease; I10 Essential (primary) hypertension; E03.8 Other specified hypothyroidism; E78.00 Pure hypercholesterolemia, unspecified; Z01.810 Encounter for preprocedural cardiovascular examination; Z01.811 Encounter for preprocedural respiratory examination; Z94.0 Kidney transplant status | CPT/HCPCS: 36415 ×8; 82948 ×9; 99212; 99213; G0277 ×10 ==

== ENCOUNTER → 2021-06-01 | Outpatient (CLI) | payer MEDICARE | LOC: MRI 08:06 | PROVIDERS: ATTEND Podiatrist Foot & Ankle Surgery | DX: E11.621 Type 2 diabetes mellitus with foot ulcer (principal); L97.421 Non-pressure chronic ulcer of left heel and midfoot limited to breakdown of skin ==

== ENCOUNTER → 2021-06-21 | Outpatient (RCR) | payer MEDICARE ==
[2021-05-24 10:47] LABS: BASOPHILS # (AUTO) 0.1 (0.0-0.1); BASOPHILS % 0.5 % (0.0-1.0); EOSINOPHILS # (AUTO) 0.1 (0.0-0.4); EOSINOPHILS % 0.8 % (0.0-6.0); HEMATOCRIT 30.3 % (38.2-49.6); HEMOGLOBIN 9.2 g/dL (14.0-18.0); MEAN CORPUSCULAR HEMOGLOBIN 29.4 pg (28-32); MEAN CORPUSCULAR HGB CONC 30.4 g/dL (31-35); MEAN CORPUSCULAR VOLUME 96.8 fL (81-99); MONOCYTES % 8.7 % (4.4-11.3); NEUTROPHILS # (AUTO) 8.9 (2.1-6.9); NEUTROPHILS % 80.4 % (38.7-80.0); PLATELET COUNT 237 x10e3/uL (140-360); RED BLOOD COUNT 3.13 x10e6/uL (4.3-5.7); RED CELL DISTRIBUTION WIDTH 15.2 % (11.7-14.4)
[2021-05-24 11:19] LABS: ALBUMIN 2.5 g/dL (3.5-5.0); ALBUMIN/GLOBULIN RATIO 0.7 (0.8-2.0); ANION GAP 17.6 mmol/L (8-16); CALCIUM 8.2 mg/dL (8.4-10.2); CREATININE, SERUM 2.42 mg/dL (0.72-1.25); POTASSIUM 5.6 mmol/L (3.5-5.1)
[~2021-06-21] MED LIST changes: +COLLAGENASE OINTMENT 30 GM TUBE ONE; +LIDOCAINE VISC 2% SOLN 15 ML UDC ONE
== END ==
LOC: WCC 05-24 07:57
PROVIDERS: ATTEND Podiatrist Foot & Ankle Surgery
DX: E11.621 Type 2 diabetes mellitus with foot ulcer (principal); E11.40 Type 2 diabetes mellitus with diabetic neuropathy, unspecified; E11.52 Type 2 diabetes mellitus with diabetic peripheral angiopathy with gangrene; E11.65 Type 2 diabetes mellitus with hyperglycemia; M86.171 Other acute osteomyelitis, right ankle and foot; L97.421 Non-pressure chronic ulcer of left heel and midfoot limited to breakdown of skin; N18.6 End stage renal disease; I10 Essential (primary) hypertension; E78.00 Pure hypercholesterolemia, unspecified; Z01.810 Encounter for preprocedural cardiovascular examination; Z01.811 Encounter for preprocedural respiratory examination; Z94.0 Kidney transplant status
CPT/HCPCS: 36415; 80053; 83036; 84134; 85025; 85651; 86141; 87071; 87075; 87205

== ENCOUNTER 2021-07-21 08:33 | Outpatient (RCR) | payer MEDICARE ==
[2021-07-08 16:40] LABS: BASOPHILS % 0.3 % (0.0-1.0); EOSINOPHILS # (AUTO) 0.1 (0.0-0.4); EOSINOPHILS % 0.8 % (0.0-6.0); HEMOGLOBIN 8.5 g/dL (14.0-18.0); LYMPHOCYTES # (AUTO) 0.6 (1.0-3.2); LYMPHOCYTES % 9.1 % (18.0-39.1); MEAN CORPUSCULAR HGB CONC 28.3 g/dL (31-35); MONOCYTES # (AUTO) 0.3 (0.2-0.8); MONOCYTES % 5.5 % (4.4-11.3); NEUTROPHILS # (AUTO) 5.2 (2.1-6.9); NEUTROPHILS % 83.8 % (38.7-80.0); PLATELET COUNT 161 x10e3/uL (140-360); RED BLOOD COUNT 2.83 x10e6/uL (4.3-5.7); RED CELL DISTRIBUTION WIDTH 17.2 % (11.7-14.4)
[2021-07-08 16:53] LABS: ALBUMIN 2.8 g/dL (3.5-5.0); ALBUMIN/GLOBULIN RATIO 1.1 (0.8-2.0); ANION GAP 14.9 mmol/L (8-16); CALCIUM 8.1 mg/dL (8.4-10.2); CREATININE, SERUM 2.36 mg/dL (0.72-1.25); POTASSIUM 4.9 mmol/L (3.5-5.1)
[~2021-07-21 08:33] MED LIST changes: +MUPIROCIN 2% OINT 22 GM TUBE ONE
[2021-07-21] MEDS ORDERED: COLLAGENASE OINTMENT 30 GM TUBE ONE (13:30)
== END 2021-07-22 ==
LOC: WCC 08:33
PROVIDERS: ATTEND Podiatrist Foot & Ankle Surgery
DX: E11.621 Type 2 diabetes mellitus with foot ulcer (principal); E11.52 Type 2 diabetes mellitus with diabetic peripheral angiopathy with gangrene; E11.40 Type 2 diabetes mellitus with diabetic neuropathy, unspecified; E11.65 Type 2 diabetes mellitus with hyperglycemia; M86.171 Other acute osteomyelitis, right ankle and foot; L97.421 Non-pressure chronic ulcer of left heel and midfoot limited to breakdown of skin; Z94.0 Kidney transplant status; N18.6 End stage renal disease; I10 Essential (primary) hypertension; E03.8 Other specified hypothyroidism; E78.00 Pure hypercholesterolemia, unspecified; Z01.810 Encounter for preprocedural cardiovascular examination; Z01.811 Encounter for preprocedural respiratory examination
CPT/HCPCS: 36415; 80053; 83036; 84134; 85025

== ENCOUNTER 2021-08-19 10:52 | Outpatient (RCR) | payer MEDICARE ==
[~2021-08-19 10:52] MED LIST changes: -MUPIROCIN 2% OINT 22 GM TUBE ONE
== END 2021-08-22 ==
LOC: WCC 10:52
PROVIDERS: ATTEND Podiatrist Foot & Ankle Surgery
DX: E11.621 Type 2 diabetes mellitus with foot ulcer (principal); E11.40 Type 2 diabetes mellitus with diabetic neuropathy, unspecified; E11.65 Type 2 diabetes mellitus with hyperglycemia; M86.171 Other acute osteomyelitis, right ankle and foot; Z94.0 Kidney transplant status; N18.6 End stage renal disease; I10 Essential (primary) hypertension; E03.8 Other specified hypothyroidism; E78.00 Pure hypercholesterolemia, unspecified; Z01.810 Encounter for preprocedural cardiovascular examination; Z01.811 Encounter for preprocedural respiratory examination
CPT/HCPCS: 11042 ×2; 15275 ×2; 97602 ×10; 99212 ×2; 99213 ×3; Q4186 ×2

== ENCOUNTER 2021-09-16 11:14 | Outpatient (RCR) | payer MEDICARE ==
[2021-08-23 11:02] LABS: BASOPHILS % 0.3 % (0.0-1.0); EOSINOPHILS # (AUTO) 0.1 (0.0-0.4); EOSINOPHILS % 1.1 % (0.0-6.0); HEMATOCRIT 28.4 % (38.2-49.6); HEMOGLOBIN 8.5 g/dL (14.0-18.0); LYMPHOCYTES # (AUTO) 0.8 (1.0-3.2); LYMPHOCYTES % 12.4 % (18.0-39.1); MEAN CORPUSCULAR HEMOGLOBIN 29.4 pg (28-32); MEAN CORPUSCULAR HGB CONC 29.9 g/dL (31-35); MEAN CORPUSCULAR VOLUME 98.3 fL (81-99); MONOCYTES # (AUTO) 0.6 (0.2-0.8); MONOCYTES % 9.7 % (4.4-11.3); NEUTROPHILS # (AUTO) 4.9 (2.1-6.9); PLATELET COUNT 188 x10e3/uL (140-360); RED BLOOD COUNT 2.89 x10e6/uL (4.3-5.7); RED CELL DISTRIBUTION WIDTH 14.5 % (11.7-14.4)
[2021-08-23 11:37] LABS: ALBUMIN 2.7 g/dL (3.5-5.0); ALBUMIN/GLOBULIN RATIO 0.8 (0.8-2.0); ANION GAP 12.6 mmol/L (8-16); CALCIUM 8.7 mg/dL (8.4-10.2); CREATININE, SERUM 2.34 mg/dL (0.72-1.25)
[2021-08-23 11:39] LABS: POTASSIUM 5.6 mmol/L (3.5-5.1)
[~2021-09-16 11:14] MED LIST changes: -COLLAGENASE OINTMENT 30 GM TUBE ONE; +MINERAL OIL/PETROLAT/GLYCERI 2OZ CRM ONE
== END 2021-09-19 ==
LOC: WCC 11:14
PROVIDERS: ATTEND Podiatrist Foot & Ankle Surgery
DX: E11.621 Type 2 diabetes mellitus with foot ulcer (principal); E11.40 Type 2 diabetes mellitus with diabetic neuropathy, unspecified; E11.65 Type 2 diabetes mellitus with hyperglycemia; E11.52 Type 2 diabetes mellitus with diabetic peripheral angiopathy with gangrene; M86.171 Other acute osteomyelitis, right ankle and foot; L97.421 Non-pressure chronic ulcer of left heel and midfoot limited to breakdown of skin; N18.6 End stage renal disease; Z94.0 Kidney transplant status; I10 Essential (primary) hypertension; E03.8 Other specified hypothyroidism; E78.00 Pure hypercholesterolemia, unspecified; Z01.810 Encounter for preprocedural cardiovascular examination; Z01.811 Encounter for preprocedural respiratory examination
CPT/HCPCS: 15275 ×4; 36415; 80053; 82948; 83036; 84134; 85025; 99212; 99213 ×3; Q4160 ×3; Q4186

== ENCOUNTER 2021-09-20 15:06 | Outpatient (RCR) | payer MEDICARE ==
[~2021-09-20 15:06] MED LIST changes: -MINERAL OIL/PETROLAT/GLYCERI 2OZ CRM ONE
== END 2021-10-20 ==
LOC: WCC 15:06
PROVIDERS: ATTEND Podiatrist Foot & Ankle Surgery
DX: E11.621 Type 2 diabetes mellitus with foot ulcer (principal); E11.40 Type 2 diabetes mellitus with diabetic neuropathy, unspecified; E11.65 Type 2 diabetes mellitus with hyperglycemia; E11.52 Type 2 diabetes mellitus with diabetic peripheral angiopathy with gangrene; M86.171 Other acute osteomyelitis, right ankle and foot; L97.421 Non-pressure chronic ulcer of left heel and midfoot limited to breakdown of skin; N18.6 End stage renal disease; I10 Essential (primary) hypertension; E03.8 Other specified hypothyroidism; E78.00 Pure hypercholesterolemia, unspecified; Z01.810 Encounter for preprocedural cardiovascular examination; Z01.811 Encounter for preprocedural respiratory examination; Z94.0 Kidney transplant status
CPT/HCPCS: 15275; Q4160

== ENCOUNTER 2021-12-16 12:46 | Outpatient (RCR) | payer MEDICARE ==
[~2021-12-16 12:46] MED LIST changes: +MUPIROCIN 2% OINT 22 GM TUBE ONE
== END 2021-12-20 ==
LOC: WCC 12:46
PROVIDERS: ATTEND Podiatrist Foot & Ankle Surgery
DX: E11.621 Type 2 diabetes mellitus with foot ulcer (principal); E11.40 Type 2 diabetes mellitus with diabetic neuropathy, unspecified; E11.65 Type 2 diabetes mellitus with hyperglycemia; E11.52 Type 2 diabetes mellitus with diabetic peripheral angiopathy with gangrene; M86.171 Other acute osteomyelitis, right ankle and foot; L97.421 Non-pressure chronic ulcer of left heel and midfoot limited to breakdown of skin; R60.0 Localized edema; N18.6 End stage renal disease; I10 Essential (primary) hypertension; E03.8 Other specified hypothyroidism; E78.00 Pure hypercholesterolemia, unspecified; Z01.810 Encounter for preprocedural cardiovascular examination; Z01.811 Encounter for preprocedural respiratory examination; Z94.0 Kidney transplant status

== ENCOUNTER → 2022-01-13 | Outpatient (CLI) | payer MEDICARE ==
[~2022-01-13] MED LIST changes: -LIDOCAINE VISC 2% SOLN 15 ML UDC ONE; -MUPIROCIN 2% OINT 22 GM TUBE ONE
== END ==
LOC: DX 12:01
PROVIDERS: ATTEND Internal Medicine
DX: E11.622 Type 2 diabetes mellitus with other skin ulcer (principal); L98.498 Non-pressure chronic ulcer of skin of other sites with other specified severity

== ENCOUNTER 2022-01-16 14:25 | Outpatient (RCR) | payer MEDICARE ==
[~2022-01-16 14:25] MED LIST changes: +LIDOCAINE VISC 2% SOLN 15 ML UDC ONE; +MINERAL OIL/PETROLAT/GLYCERI 6OZ BTL ONE; +MUPIROCIN 2% OINT 22 GM TUBE ONE
== END 2022-01-19 ==
LOC: WCC 14:25
PROVIDERS: ATTEND Internal Medicine Infectious Disease
DX: E11.621 Type 2 diabetes mellitus with foot ulcer (principal); E11.52 Type 2 diabetes mellitus with diabetic peripheral angiopathy with gangrene; E11.40 Type 2 diabetes mellitus with diabetic neuropathy, unspecified; E11.65 Type 2 diabetes mellitus with hyperglycemia; M86.171 Other acute osteomyelitis, right ankle and foot; L97.421 Non-pressure chronic ulcer of left heel and midfoot limited to breakdown of skin; R60.0 Localized edema; N18.6 End stage renal disease; I10 Essential (primary) hypertension; E03.8 Other specified hypothyroidism; Z01.810 Encounter for preprocedural cardiovascular examination; Z01.811 Encounter for preprocedural respiratory examination; Z94.0 Kidney transplant status
CPT/HCPCS: 87071; 87075; 87186; 87205

== ENCOUNTER → 2022-02-06 | Outpatient (CLI) | payer MEDICARE ==
[~2022-02-06] MED LIST changes: -LIDOCAINE VISC 2% SOLN 15 ML UDC ONE; -MINERAL OIL/PETROLAT/GLYCERI 6OZ BTL ONE; -MUPIROCIN 2% OINT 22 GM TUBE ONE
== END ==
LOC: CARD 09:20
PROVIDERS: ATTEND Plastic Surgery
DX: E11.622 Type 2 diabetes mellitus with other skin ulcer (principal); L98.498 Non-pressure chronic ulcer of skin of other sites with other specified severity
CPT/HCPCS: 93931

== ENCOUNTER 2022-02-17 09:20 | Outpatient (RCR) | payer MEDICARE ==
[~2022-02-17 09:20] MED LIST changes: +COLLAGENASE OINTMENT 30 GM TUBE ONE; +GENTAMICIN SULFATE 15 GM CR TP ONE; +LIDOCAINE/PRILOCAINE 2.5-2.5% KIT ONE; +MUPIROCIN 2% OINT 22 GM TUBE ONE
== END 2022-02-19 ==
LOC: WCC 09:20
PROVIDERS: ATTEND Podiatrist Foot & Ankle Surgery
DX: E11.621 Type 2 diabetes mellitus with foot ulcer (principal); E11.622 Type 2 diabetes mellitus with other skin ulcer; E11.40 Type 2 diabetes mellitus with diabetic neuropathy, unspecified; E11.65 Type 2 diabetes mellitus with hyperglycemia; E11.52 Type 2 diabetes mellitus with diabetic peripheral angiopathy with gangrene; M86.171 Other acute osteomyelitis, right ankle and foot; L97.421 Non-pressure chronic ulcer of left heel and midfoot limited to breakdown of skin; L97.321 Non-pressure chronic ulcer of left ankle limited to breakdown of skin; L98.498 Non-pressure chronic ulcer of skin of other sites with other specified severity; R60.0 Localized edema; N18.6 End stage renal disease; I10 Essential (primary) hypertension; E03.8 Other specified hypothyroidism; E78.00 Pure hypercholesterolemia, unspecified; B96.5 Pseudomonas (aeruginosa) (mallei) (pseudomallei) as the cause of diseases classified elsewhere; Z01.810 Encounter for preprocedural cardiovascular examination; Z01.811 Encounter for preprocedural respiratory examination; Z94.0 Kidney transplant status

== ENCOUNTER 2022-02-24 10:49 | Outpatient (RCR) | payer MEDICARE ==
[~2022-02-24 10:49] MED LIST changes: -COLLAGENASE OINTMENT 30 GM TUBE ONE; -LIDOCAINE/PRILOCAINE 2.5-2.5% KIT ONE; +TRYPSIN/BALSAM PERU/CASTOR OIL ONE
== END 2022-03-22 ==
LOC: WCC 10:49
PROVIDERS: ATTEND Podiatrist Foot & Ankle Surgery
DX: E11.621 Type 2 diabetes mellitus with foot ulcer (principal); E11.622 Type 2 diabetes mellitus with other skin ulcer; E11.40 Type 2 diabetes mellitus with diabetic neuropathy, unspecified; E11.65 Type 2 diabetes mellitus with hyperglycemia; E11.52 Type 2 diabetes mellitus with diabetic peripheral angiopathy with gangrene; M86.171 Other acute osteomyelitis, right ankle and foot; L97.421 Non-pressure chronic ulcer of left heel and midfoot limited to breakdown of skin; L97.321 Non-pressure chronic ulcer of left ankle limited to breakdown of skin; L98.498 Non-pressure chronic ulcer of skin of other sites with other specified severity; R60.0 Localized edema; N18.6 End stage renal disease; I10 Essential (primary) hypertension; E78.00 Pure hypercholesterolemia, unspecified; E03.8 Other specified hypothyroidism; B96.5 Pseudomonas (aeruginosa) (mallei) (pseudomallei) as the cause of diseases classified elsewhere; Z01.810 Encounter for preprocedural cardiovascular examination; Z01.811 Encounter for preprocedural respiratory examination; Z94.0 Kidney transplant status